=== PATIENT | male | born 1990 | race Caucasian/White ===

== ENCOUNTER → 2021-04-01 15:38 | Outpatient (BNVA) | payer OTHER, SELFPAY | PROVIDERS: Family Provider Emergency Medicine; PCP Emergency Medicine; Visit Provider Nurse Practitioner Family | DX: Z20.822 Contact with and (suspected) exposure to COVID-19 (principal); J06.9 Acute upper respiratory infection, unspecified | CPT/HCPCS: 87635 ==

== ENCOUNTER → 2021-10-14 13:35 | Outpatient (BNVA) | payer OTHER, SELFPAY | PROVIDERS: Family Provider Emergency Medicine; PCP Emergency Medicine; Visit Provider Nurse Practitioner Family | DX: Z20.822 Contact with and (suspected) exposure to COVID-19 (principal); Z71.89 Other specified counseling; F17.200 Nicotine dependence, unspecified, uncomplicated | CPT/HCPCS: 87635 ==

== ENCOUNTER 2023-03-14 09:38 | Emergency (ER) | payer OTHER, SELFPAY ==
[2023-03-14 09:49] VITALS: BP 159/87; PULSE 90; RESP 16; TEMP 36.5; O2SAT 96; BMI 28.0
--- NOTE | 2023-03-14 10:02 | W.ED.SKABFB ---
HPI - Skin/Abscess/Foreign Bdy General: Chief complaint: Skin/Abscess/Foreign Body Stated complaint: possible abscess on chest Time Seen by Provider: 03/14/23 09:46 Source: patient Mode of arrival: ambulatory History of Present Illness: 32-year-old male presents emergency room complaining of a tender nodule in the left breast at the 9 o'clock position 1 inch out from the areola came up over the last several days he has 2 smaller areas that are noninflamed along the edge of the pannus. Patient shaves his chest and abdomen. He has not had any fever sweats chills. No drainage from the wound MD complaint: abscess/boil Onset (ago): day(s) Location: chest Quality: sharp Pain Consistency: constant Exacerbating factors: palpation Associated symptoms: Deny arthralgias, chills, cough, fever(s), itching, myalgias, nausea, rigidity, short of breath or vomiting Treatments prior to arrival: none Review of Systems Const: Denies: fever(s), chills, fatigue or malaise Card: Denies: chest pain, edema, dyspnea on exertion or orthopnea Resp: Denies: dyspnea, productive cough or non-productive cough GI: Denies: nausea or vomiting : Denies: flank pain, dysuria, urinary frequency or urinary urgency Skin/Breast: Reports: rash; Denies: pruritus Physical Exam Const: COMMON NORMALS: no acute distress GENERAL APPEARANCE: cooperative and comfortable ORIENTATION/CONSCIOUSNESS: Yes awake, Yes oriented to person, Yes oriented to place and Yes oriented to time HENMT: COMMON NORMALS: normocephalic, atraumatic and hearing grossly normal bilaterally HEAD & SCALP: normocephalic and atraumatic Chest: OTHER: Exquisitely tender red and inflamed area with indurated skin palpable fluctuant nodule about 2-1/2 to 3 cm in diameter and it is 1 inch from the areola of the left nipple at the 9 o'clock position. Resp: COMMON NORMALS: normal respiratory effort, No retractions, No use of accessory muscles and clear to auscultation bilaterally AUSCULTATION: clear to auscultation bilaterally Cardio: COMMON NORMALS: regular rate, regular rhythm and No murmurs present (Cardio) RATE: regular rate RHYTHM: regular rhythm GI: COMMON NORMALS: Soft to palpation and No hepatosplenomegaly present AUSCULTATION: Yes normoactive bowel sounds PALPATION: Yes Soft to palpation, No Tenderness to palpation present (GI), No Guarding due to palpation present (GI) and Yes No hepatosplenomegaly present Extremity: COMMON NORMALS: normal to inspection, capillary refill normal, no clubbing, cyanosis or edema, no calf tenderness and no pedal edema Neuro: SENSORIUM/ORIENTATION: Yes oriented to person, Yes oriented to place and Yes oriented to time Skin: COMMON NORMALS: no rashes or lesions noted GENERAL SKIN EXAM: no rashes or lesions noted Procedures Abscess I/D Site: chest Side (if applicable): left Local Anesthetic: lidocaine 1% and with epi Amount of anesthesia used (mL): 3 Technique: incised with #11 blade Amount of fluid expressed (mL): 4 Irrigation: Yes Packing used?: plain Complications: pain Course Vital Signs: Vital signs: Vital Signs Temperature 97.7 F 03/14/23 09:49 Pulse Rate 90 03/14/23 09:49 Respiratory Rate 16 03/14/23 09:49 Blood Pressure 159/87 03/14/23 09:49 Pulse Oximetry 96 03/14/23 09:49 Oxygen Delivery Me thod Room Air 03/14/23 09:49 MDM - Skin/Abscess/Foreign Bdy Medicial Decision Making Incised and drained culture done. Irrigated and debrided the wound as best possible packing placed remove packing tomorrow to urgent care start antibiotics. Discharge Plan Discharge Patient Disposition: Home Clinical Impression: Abscess of skin or subcutaneous tissue Condition: Stable Prescriptions: New Bactrim DS 800-160 mg tablet 1 tab PO BID 7 Days Qty: 14 0RF Discharge Orders: Discharge ED (Routine); Ordered 03/14/23 Ordered By: Dominic Motta Discharge Diet: Usual diet Discharge Activity: Increase activity as tolerated Patient Instructions: Opioid Safety, Pain Management Activity Restrictions/Additional Instructions: You are seen today for an incision and drainage of abscess on the left side of your chest. Wound should have the packing removed tomorrow at urgent care. Start antibiotics 1 pill twice daily for 7 days. Coding Level of Care Code ED Manager Erp for Jonathan Salcedo
== END 2023-03-14 10:27 | disposition home or self-care (01) ==
PROVIDERS: Emergency Provider Family Medicine
DX: N61.1 Abscess of the breast and nipple (principal)
CPT/HCPCS: 10061; 87070; 87077; 87186; 99283